=== PATIENT | female | born 1965 | race American Indian/Alaskan Native ===

== ENCOUNTER 2018-10-30 08:53 | Emergency (ER) | payer OTHER ==
[~2018-10-30] VITALS: Ht 162.6 cm; Wt 86.2 kg
[~2018-10-30 08:53] MED LIST: CIPRO500 MG PO; CYMBALTA30 MG PO; DOCUSATE SODIU100 MG PO; FOLIC ACID1 MG PO; GABAPENTIN300 MG PO; HUMIRA40 MG/0.1 SUB-Q; HYDROCODON-ACE1 EA12 PO; IBUPROFEN800 MG PO; METHOTREXATE2.5 MG PO; MULTI-VITAMIN1 EACH PO; NORCO 5-325 TA1 EACH PO; OMEGA 3 1,0001 EACH PO; OMEPRAZOLE20 MG PO; OXYCODONE HCL5 MG PO; PLAQUENIL200 MG PO; PREDNISONE10 M1 PO; PREDNISONE10 MG PO; PREDNISONE20 MG PO; SUCRALFATE1 GM/10 ML PO; TRAMADOL HCL50 MG PO; VITAMIN C500 M1 PO; XELJANZ5 MG PO
--- OUTSIDE RECORDS SUMMARY | 2018-10-30 08:56 | XMS ---
PreManage Notification: EMMA MARINO Security City Planning Engineer Events No recent Security Events currently on file [facility] There are no care providers on record at this time. Michelle has no Care Guidelines for this patient. Ifeanyi VISIT COUNT (12 MO.) 2 KENYA Lacy TOTAL 2 NOTE: Visits indicate total known visits. ED/UCC VISIT TRACKING (12 MO.) 10/30/2018 08:54 [facility] TYPE: Emergency COMPLAINT: - ARM INJ, FALL 12/19/2017 12:[address] [facility] TYPE: Emergency COMPLAINT: - BODY PAIN/CHEST PAIN DIAGNOSES: - Chest pain, unspecified - Rheumatoid arthritis, unspecified - Other chest pain - Other fci (current) drug therapy - Other chest pain INPATIENT VISIT TRACKING (12 MO.) No inpatient visits to display in this time frame [email or web address]
[2018-10-30] MEDS ORDERED: NORCO 7.5-3251 EACH PO (09:56)
== END 2018-10-30 11:10 | disposition home or self-care (01) ==
LOC: ED 08:53
DX: S52.122A Displaced fracture of head of left radius, initial encounter for closed fracture (principal); W18.30XA Fall on same level, unspecified, initial encounter
CPT/HCPCS: 29105; 73080; 73090; 99283-25

== ENCOUNTER 2020-03-20 11:12 | Emergency (ER) | payer OTHER ==
[~2020-03-20] VITALS: Ht 162.6 cm; Wt 86.2 kg
[~2020-03-20 11:12] MED LIST changes: +NORCO 7.5-3251 EACH PO
--- OUTSIDE RECORDS SUMMARY | 2020-03-20 11:16 | XMS ---
PreManage Notification: EMMA MARINO Security Head Cager Events No recent Security Events currently on file CRITERIA MET - [facility] - Has Care Guidelines CARE PROVIDERS [facility] Physician Shock Absorption Floor Layer: Surgical 11/01/2018-Current PHONE: Unknown BERTIN MONTANO Nurse Practitioner 11/01/2018-Current PHONE: [phone] Michelle has no Care Guidelines for this patient. Care History Medical/Surgical 11/01/2018 [facility] \T\middot;\T\nbsp; PATIENT IS A [employer] MEMBER. \T\middot;\T\nbsp; PLEASE REFER PATIENT TO [facility] FOR NON EMERGENT MEDICAL NEEDS. \T\middot;\ T\nbsp; [facility] CAN SEE PATIENTS SAME DAY FOR APTS IF PATIENT CALLS FIRST THING IN THE MORNING. E.D. VISIT COUNT (12 MO.) 1 KENYA Lacy TOTAL 1 NOTE: Visits indicate total known visits. ED/UCC VISIT TRACKING (12 MO.) 03/20/2020 11:13 [facility] TYPE: Emergency COMPLAINT: - CHEST CONGESTION, VOMITING, CHILLS/FEVER INPATIENT VISIT TRACKING (12 MO.) No inpatient visits to display in this time frame [email or web address]
[2020-03-20] MEDS ORDERED: PANTOPRAZOLE SO20 MG PO (11:27)
[2020-03-20] MEDS ORDERED: LISINOPRIL10 MG PO (11:27)
[2020-03-20] MEDS ORDERED: ONDANSETRON ODT8 MG PO (13:23)
== END 2020-03-20 13:38 | disposition home or self-care (01) ==
LOC: ED 11:12
DX: U07.1 COVID-19 (principal); F17.200 Nicotine dependence, unspecified, uncomplicated; Z79.899 Other long term (current) drug therapy
CPT/HCPCS: 80053; 85025; 99284; C9803; U0003

== ENCOUNTER 2021-11-15 09:02 | Emergency (ER) | payer OTHER ==
[~2021-11-15] VITALS: Ht 162.6 cm; Wt 69.8 kg
[~2021-11-15 09:02] MED LIST changes: +LISINOPRIL10 MG PO; +ONDANSETRON ODT8 MG PO; +PANTOPRAZOLE SO20 MG PO
[2021-11-15] MEDS ORDERED: ZITHROMAX250 MG PO (11:04)
[2021-11-15] MEDS ORDERED: PREDNISONE20 MG PO (11:04)
== END 2021-11-15 11:17 | disposition home or self-care (01) ==
LOC: ED 09:02
DX: J45.901 Unspecified asthma with (acute) exacerbation (principal); J20.8 Acute bronchitis due to other specified organisms; Z20.822 Contact with and (suspected) exposure to COVID-19; M19.90 Unspecified osteoarthritis, unspecified site; I10 Essential (primary) hypertension; F17.200 Nicotine dependence, unspecified, uncomplicated; Z79.899 Other long term (current) drug therapy
CPT/HCPCS: 71045; 87502; 94640; 99284-25; C9803; J7512; U0003